=== PATIENT | female | born 1985 | race Hispanic/Latino ===

== ENCOUNTER 2018-10-24 05:35 | Inpatient (IN) | payer OTHER ==
[2018-10-24 06:10] VITALS: BMI 45.3
[2018-10-24] MEDS ORDERED: Butorphanol Tartrate 1 MG/ML VIAL SLOW IVP PRN (06:55)
[2018-10-24] MEDS ORDERED: Ondansetron PF 4 MG/2 ML Vial IVP PRN ×4 (06:55→23:32)
[2018-10-24] MEDS ORDERED: Promethazine HCl 25 MG/ML VIAL IM PRN ×3 (06:55→21:13)
[2018-10-24] MEDS ORDERED: Penicillin G Potassium 5 MILL.UNITS in Sodium Chloride 0.9% 100 ML IVPB SCH (07:00)
[2018-10-24 07:27] LABS: Mean Corpuscular HGB CONC 33.9 g/dL (32.0-36.0); Mean Corpuscular Hemoglobin 30.2 pg (27.0-31.0); Mean Corpuscular Volume 89.1 fL (78.0-98.0); Platelet Count 173 thou/uL (130-400); RBC Distribution Width 11.9 % (11.5-14.5); Red Blood Cell (RBC) Count 3.63 mill/uL (4.20-5.40); White Blood Cell (WBC) Count 8.7 thou/uL (4.8-10.8)
[2018-10-24] MEDS ORDERED: Fentanyl 4 mcg/Bup 0.1% Cadd 100 ML ONE ×3 (07:27→15:27)
[2018-10-24 08:10] LABS: HBSAg Index 0.29 S/CO (0-0.99); Hep B Surf Ag Non-Reactive S/CO (NonReactive); Syphilis Antibody Nonreactive (Nonreactive); Syphilis Antibody Index 0.07 S/CO (<1.00 Non-Reactive)
[2018-10-24] MEDS ORDERED: Acetaminophen 325 MG TAB PO PRN (08:18)
[2018-10-24] MEDS ORDERED: ePHEDrine/0.9% NaCl/PF SYRINGE 50 mg/10 ml SLOW IVP PRN (08:18)
[2018-10-24] MEDS ORDERED: Lactated Ringer's 500 ML IV PRN (08:18)
[2018-10-24] MEDS ORDERED: diphenhydrAMINE 50 MG/ML VIAL IVP PRN ×2 (08:18→21:13)
[2018-10-24] MEDS ORDERED: Eucerin (Mineral Oil/Petrolatum,White) 30 gm Jar TOP PRN ×2 (08:18→21:13)
[2018-10-24] MEDS ORDERED: Naloxone HCl 0.4 mg/ml Vial IVP PRN ×4 (08:18→21:13)
[2018-10-24] MEDS: Lactated Ringer's 1,000 ML IV SCH ×2 (08:19→11:37)
[2018-10-24] MEDS ORDERED: Communication Order-Pharmacy FS SCH ×2 (08:30→21:15)
[2018-10-24] MEDS ORDERED: Fentanyl 4 mcg/Bupivacaine 0.1% Cassette 100 ML EPIDURAL SCH (08:30)
[2018-10-24] MEDS ORDERED: Penicillin G 2.5 MILL.units 50 ML ONE ×3 (10:56→19:03)
[2018-10-24] MEDS: Penicillin G Potassium 2.5 MILL.UNITS in Sodium Chloride 0.9% 50 ML IVPB SCH ×2 (11:07→15:53)
[2018-10-24] MEDS ORDERED: Lidocaine 2% MPF 10 ML AMP (For Epidural Use) ONE (11:11)
[2018-10-24] MEDS ORDERED: NS w/ Oxytocin 10 units 500 ML ONE (13:19)
[2018-10-24] MEDS ORDERED: NS w/ Oxytocin 10 units 500 ML IV SCH (13:30)
[2018-10-24] MEDS ORDERED: Lidocaine 2% PF 5 ML VIAL ONE (14:57)
[2018-10-24] MEDS ORDERED: Ketorolac Tromethamine 30 MG/ML VIAL ONE ×2 (14:57→20:27)
[2018-10-24] MEDS ORDERED: Dexamethasone 20 MG/5 ML VIAL ONE (14:57)
[2018-10-24] MEDS ORDERED: Ondansetron PF 4 MG/2 ML Vial ONE ×2 (14:57→20:27)
[2018-10-24] MEDS ORDERED: Acetaminophen 500 MG TAB PO SCH (19:15)
[2018-10-24] MEDS: Gentamicin Sulfate 360 MG in Sodium Chloride 0.9% 100 ML IVPB SCH (19:41)
[2018-10-24] MEDS ORDERED: Bicitra 30 ML UDCUP ONE (19:57)
[2018-10-24] MEDS ORDERED: CEFAZOLIN 2 GM in Premix Bag 1 BAG IVPB SCH (20:00)
[2018-10-24] MEDS ORDERED: Bicitra 30 ML UDCUP PO SCH (20:00)
[2018-10-24] MEDS ORDERED: Azithromycin 500 MG in Sodium Chloride 0.9% 250 ML 250 ML IVPB ONE (20:00)
[2018-10-24] MEDS ORDERED: Dexamethasone 4 mg/ml Vial ONE (20:27)
[2018-10-24] MEDS ORDERED: ePHEDrine/0.9% NaCl/PF SYRINGE 50 mg/10 ml ONE (20:27)
[2018-10-24] MEDS ORDERED: PROPOFOL 0 ML ONE (20:27)
[2018-10-24] MEDS ORDERED: Lidocaine 2% 10 ML INJ ONE (20:27)
[2018-10-24] MEDS ORDERED: Succinylcholine Chloride 20 MG/ML 10 ml SYRINGE FS ONE (20:27)
[2018-10-24] MEDS ORDERED: Midazolam HCl 2 mg/2 ml Vial ONE (20:38)
[2018-10-24] MEDS ORDERED: Fentanyl 100 MCG/2 ML VIAL ONE (20:39)
[2018-10-24] MEDS ORDERED: Oxytocin 10 UNITS/ML VIAL ONE (20:41)
[2018-10-24] MEDS ORDERED: MORPHINE 5 MG/10 ML PF VIAL ONE (20:44)
[2018-10-24] MEDS ORDERED: Methylergonovine 0.2 MG/ML VIAL ONE (20:48)
[2018-10-24 20:56] LABS: pH (Cord, venous) 7.29 (7.32-7.43)
[2018-10-24] MEDS ORDERED: Bupivacaine/Epinephrine 0.5% 10 ML VIAL ONE (21:01)
[2018-10-24] MEDS ORDERED: HYDROmorphone 2 MG/ML VIAL SLOW IVP PRN (21:13)
[2018-10-24] MEDS ORDERED: Ketorolac Tromethamine 30 MG/ML VIAL IVP PRN (21:13)
[2018-10-24] MEDS ORDERED: Naloxone HCl 0.4 mg/ml Vial IV PRN (21:13)
[2018-10-24] MEDS ORDERED: Promethazine HCl 25 MG SUPP PR PRN (21:13)
[2018-10-24] MEDS ORDERED: L&D-Morphine 4 MG/ML VIAL SLOW IVP PRN (21:13)
[2018-10-24] MEDS ORDERED: Meperidine HCl/PF 25 MG/ML VIAL SLOW IVP PRN (21:13)
[2018-10-24] MEDS ORDERED: Ondansetron HCl/PF 4 MG/2 ML Vial IVP PRN (21:13)
[2018-10-24] MEDS ORDERED: metroNIDAZOLE 500 MG in Premix Bag 1 BAG IVPB SCH (23:00)
[2018-10-24] MEDS ORDERED: Lactated Ringer's 1,000 ML IV SCH (23:32)
[2018-10-24] MEDS ORDERED: Meperidine HCl/PF 25 MG/ML VIAL IM PRN (23:32)
[2018-10-24] MEDS ORDERED: Bisacodyl 10 MG SUPP PR PRN (23:32)
[2018-10-24] MEDS ORDERED: Simethicone Chewable 80 MG TAB PO PRN (23:32)
[2018-10-24] MEDS ORDERED: HYDROcodone/Acetaminophen 5/325 mg Tablet PO PRN (23:32)
[2018-10-24] MEDS ORDERED: diphenhydrAMINE 25 MG CAP PO PRN (23:32)
[2018-10-24] MEDS ORDERED: Lanolin Ointment 7 GM TUBE TOP PRN (23:32)
[2018-10-24] MEDS ORDERED: NS / Oxytocin 40 units/1000ml 1,000 ML IV SCH (23:32)
--- NOTE | 2018-10-25 01:05 | OP ---
DATE OF PROCEDURE: 10/24/2018 RESIDENT SURGEON: Adrianna Dennis DO PREOPERATIVE DIAGNOSES: 1. Term intrauterine at 38 and 6 weeks. 2. Spontaneous rupture of membranes with onset of labor. 3. GBS positive. 4. Rubella nonimmune. 5. Failure to descend. 6. Chorioamnionitis. POSTOPERATIVE DIAGNOSES: 1. Term intrauterine , delivered. 2. Primary low-transverse section. 3. Spontaneous rupture of membranes with onset of labor. 4. GBS positive. 5. Rubella nonimmune. 6. Failure to descend. 7. Chorioamnionitis. INDICATIONS: This is a 33-year-old female at 38 and 6 weeks, who presented to Labor and Delivery after SROM at 4:00 a.m. and onset of labor shortly thereafter. She labored whole day and made it to 10 cm. The patient pushed for 2 hours with no descent. Thus, the patient was taken back for delivery for failure to descend. Of note, the patient spiked a fever during labor and was given a dose of gentamicin. The patient was already on penicillin G due to her GBS status. The patient was diagnosed with chorioamnionitis. PROCEDURE IN DETAIL: After risks and benefits of the procedure were discussed, the patient agreed to primary low-transverse for failure of descent. Preoperative antibiotics included Ancef and azithromycin. The patient was also given a dose of gentamicin during labor for chorioamnionitis. The patient had received penicillin G all day due to GBS status. The patient already had an epidural, so upon entering the operating room, the patient was placed on the operating table in the supine position with left lateral tilt. She was prepped and draped in the usual sterile fashion. A Pfannenstiel incision was made 2 cm above the pubic symphysis and carried down to the level of the fascia, which was sharply nicked. The fascia was extended bilaterally with Marley scissors. Mari clamps were utilized. Tissue of the superior and inferior edges of the fascia, which was dissected free using blunt method as well as Marley scissors. Recti muscles were divided and peritoneum was entered bluntly. Bladder blade was placed and uterine incision was made using scalpel. Clear fluid was noted upon entering the uterus. The uterus was extended in a horizontal fashion. was noted to be vertex and was easily delivered with fundal pressure. Cord was clamped and was handed to the waiting nurse. Cord gas was obtained and sent for analysis. Cord blood was also collected. Placenta was delivered intact with three-vessel cord noted. Placenta was then sent for pathology. The uterus was externalized and curetted with a dry lap. Hysterotomy was closed using 0 Vicryl in a running locking fashion. A few [id number] stitches were necessary for hemostasis as well. Methergine was needed for uterine atony. After administration of Methergine at this point, the uterus became firm. At this point, the abdominal cavity was irrigated and suctioned free of clots both anteriorly and posteriorly. Uterus was placed back into the abdomen and again visualized for hemostasis. Upon reinspection, hemostasis was noted. Peritoneum was closed using 0 Vicryl in a running nonlocking fashion. There was a small tear on the left abdominal muscle that was repaired using 0 Vicryl in a [id number]. The fascia was then brought together using 0 PDS in a running nonlocking fashion. At this point, the subcutaneous tissue was irrigated and bleeders were cauterized. The subcutaneous tissue was brought together using simple interrupted stitches with 2-0 plain gut. The incision was brought together using yuridia. A pressure dressing was placed. The patient was taken to the operating room in no distress for routine recovery/care. COMPLICATIONS: None. QUANTITATIVE BLOOD LOSS: 1180 mL. SPECIMENS: Placenta was noted to be intact and was sent for pathology due to concerns for chorioamnionitis. Cord gas was sent for analysis. Cord blood was sent for blood type. DRAINS: Garcia to gravity, draining pink tinged urine. Urine was noted to be this color prior to start of the delivery. NOTES: 8 pounds 10 ounces male infant was delivered at 2039 on 10/24/2018 via primary low transverse . Apgars were 9 and 9 at 1 and 5 minutes respectively. [facility] went to [facility]. The patient will have labs done and be started on antibiotics due to maternal chorioamnionitis. Job ID: [id number]
[2018-10-25] MEDS: metroNIDAZOLE 500 MG in Premix Bag 1 BAG IVPB SCH ×4 (01:09→21:55)
[2018-10-25] MEDS: Ibuprofen 800 MG TAB PO SCH ×4 (02:44→21:55)
[2018-10-25] MEDS: CEFAZOLIN 2 GM in Premix Bag 1 BAG IVPB SCH ×3 (05:29→21:56)
[2018-10-25 06:43] LABS: Hemoglobin 9.3 g/dL (12.0-16.0); Mean Corpuscular HGB CONC 31.5 g/dL (32.0-36.0); Mean Platelet Volume 9.6 fL (7.4-10.4); Platelet Count 159 thou/uL (130-400); Red Blood Cell (RBC) Count 3.09 mill/uL (4.20-5.40); White Blood Cell (WBC) Count 15.7 thou/uL (4.8-10.8)
[2018-10-25] MEDS: Penicillin G Potassium 2.5 MILL.UNITS in Sodium Chloride 0.9% 50 ML IVPB SCH ×2 (09:52→09:53)
[2018-10-25] MEDS: Lactated Ringer's 1,000 ML IV SCH (09:53)
[2018-10-25] MEDS: Prenatal Vitamin 1 TAB PO SCH (10:42)
[2018-10-25] MEDS: Ferrous Sulfate 325 MG TAB PO SCH ×2 (10:42→16:29)
[2018-10-25] MEDS: Docusate Calcium (SURFAK) 240 MG CAP PO SCH ×2 (10:42→21:55)
[2018-10-25] MEDS: HYDROcodone/Acetaminophen 5/325 mg Tablet PO PRN (10:42)
[2018-10-25] MEDS: Gentamicin Sulfate 360 MG in Sodium Chloride 0.9% 100 ML IVPB SCH (21:56)
[2018-10-26] MEDS: CEFAZOLIN 2 GM in Premix Bag 1 BAG IVPB SCH ×3 (05:31→22:19)
[2018-10-26] MEDS: Ibuprofen 800 MG TAB PO SCH ×3 (05:35→20:46)
[2018-10-26] MEDS: metroNIDAZOLE 500 MG in Premix Bag 1 BAG IVPB SCH ×3 (08:32→22:19)
[2018-10-26] MEDS: Ferrous Sulfate 325 MG TAB PO SCH ×2 (09:45→17:59)
[2018-10-26] MEDS: Prenatal Vitamin 1 TAB PO SCH (09:46)
[2018-10-26] MEDS: Docusate Calcium (SURFAK) 240 MG CAP PO SCH ×2 (09:46→20:47)
[2018-10-26] MEDS ORDERED: Sodium Chloride 0.9% 10 ML ONE (22:28)
[2018-10-27] MEDS: HYDROcodone/Acetaminophen 5/325 mg Tablet PO PRN (05:52)
[2018-10-27] MEDS: CEFAZOLIN 2 GM in Premix Bag 1 BAG IVPB SCH ×2 (05:53→13:41)
[2018-10-27 08:38] VITALS: BP 85/44; TEMP 98.5
[2018-10-27] MEDS: Ferrous Sulfate 325 MG TAB PO SCH (09:10)
[2018-10-27] MEDS: metroNIDAZOLE 500 MG in Premix Bag 1 BAG IVPB SCH (09:10)
[2018-10-27] MEDS: Prenatal Vitamin 1 TAB PO SCH (09:10)
[2018-10-27] MEDS: Docusate Calcium (SURFAK) 240 MG CAP PO SCH (09:11)
[2018-10-27] MEDS: Ibuprofen 800 MG TAB PO SCH (09:11)
[2018-10-27] MEDS ORDERED: Measles/Mumps/Rubella 10 MCG/0.5 ML VIAL SC ONE (19:00)
== END 2018-10-27 18:06 | disposition home or self-care (01) | DRG 786 ==
LOC: L&D/OP 05:35 → L&D 06:34 → 3SW 23:50
PROVIDERS: ADMIT Family Medicine; ATTEND Family Medicine
PROC: 10D00Z1 Extraction of Products of Conception, Low, Open Approach (ICD-10-PCS; principal; 2018-10-24)
DX: O99.824 Streptococcus B carrier state complicating childbirth (principal); O41.1230 Chorioamnionitis, third trimester, not applicable or unspecified; Z37.0 Single live birth; O32.4XX0 Maternal care for high head at term, not applicable or unspecified; O62.2 Other uterine inertia; Z3A.39 39 weeks gestation of pregnancy
CPT/HCPCS: 36415; 51702; 82805; 85027; 86780; 86850; 86900; 86901; 87340; 88307; 90707; 99285; J0456; J0690; J1100; J1580; J1885; J2001; J2210; J2250; J2270; J2405; J2540; J2590; J2704; J3010; J3490; J7050